=== PATIENT | female | born 1970 | race Hispanic/Latino ===

== ENCOUNTER 2022-01-23 16:18 | Emergency (ER) | payer OTHER ==
[~2022-01-23] VITALS: Ht 157.5 cm; Wt 68.0 kg
[2022-01-23 16:23] VITALS: BP 157/72
[2022-01-23] MEDS ORDERED: ACETAMINOPHEN 500 MG TABLET PO ONE (17:00)
[2022-01-23] MEDS ORDERED: AMOX/CLAV 875/125MG TAB PO ONE (17:00)
[2022-01-23] MEDS ORDERED: ACET-2247 PO (17:42)
[2022-01-23] MEDS ORDERED: AMOX1TAB16 PO (17:42)
== END 2022-01-23 17:58 | disposition home or self-care (01) ==
LOC: EDH 16:18
DX: R59.0 Localized enlarged lymph nodes (principal); B34.9 Viral infection, unspecified; Z20.822 Contact with and (suspected) exposure to COVID-19; E78.00 Pure hypercholesterolemia, unspecified
CPT/HCPCS: 87635; 87804 ×2; 99283; C9803